=== PATIENT | female | born 1935 | race Caucasian/White ===

== ENCOUNTER → 2017-09-14 | Outpatient (POV) | LOC: OUTPT 00:01 | PROVIDERS: ATTEND Otolaryngology | DX: H91.90 Unspecified hearing loss, unspecified ear (principal) | CPT/HCPCS: 92557 ==

== ENCOUNTER 2018-07-04 12:03 | Outpatient (CLI) | payer OTHER | END 2018-07-04 12:04 | disposition home or self-care (01) | LOC: RHC-LAB 12:03 | PROVIDERS: ATTEND Otolaryngology | DX: H92.12 Otorrhea, left ear (principal); H66.92 Otitis media, unspecified, left ear | CPT/HCPCS: 87070; 87186 ==

== ENCOUNTER 2018-07-19 12:19 | Outpatient (CLI) | END 2018-07-19 12:20 | disposition home or self-care (01) | LOC: RHC-LAB 12:19 | PROVIDERS: ATTEND Otolaryngology | DX: H66.90 Otitis media, unspecified, unspecified ear (principal) | CPT/HCPCS: 87070; 87186 ==